=== PATIENT | female | born 1960 | race Caucasian/White ===

== ENCOUNTER 2018-03-08 08:28 | Day surgery (SDC) | payer OTHER ==
[~2018-03-08] VITALS: Ht 160 cm; Wt 43.5 kg
[~2018-03-08 08:28] MED LIST: CALCIUM 600 +1 EAC5 PO; LEVSOD88 PO
--- NOTE | 2018-03-08 08:54 | NUR ---
03/08/18 0854 Darya Greenwood V PT RESTINGIN BED, SIDE RAILS IN PLACE, CALL LIGHT WITHIN REACH, VSS.. PT TEACHING COMPLETED. PT DENIES PAIN, DISCOMFORT AND QUESTIONS AT THI TIME.
== END 2018-03-08 10:30 | disposition home or self-care (01) ==
LOC: ORSCSDS 08:28
PROVIDERS: Surgery
PROC: 0DBL8ZX Excision of Transverse Colon, Via Natural or Artificial Opening Endoscopic, Diagnostic (ICD-10-PCS; principal; 2018-03-08 10:00)
DX: Z12.11 Encounter for screening for malignant neoplasm of colon (principal); D12.3 Benign neoplasm of transverse colon; E03.9 Hypothyroidism, unspecified; K64.4 Residual hemorrhoidal skin tags; Z79.899 Other long term (current) drug therapy
CPT/HCPCS: 88305; J7120

== ENCOUNTER 2018-04-04 10:11 | Day surgery (SDC) | payer OTHER ==
[~2018-04-04] VITALS: Ht 160 cm; Wt 43.5 kg
[2018-04-04] MEDS ORDERED: MIRALAX17 GM PO (10:48)
[2018-04-04] MEDS ORDERED: BISA5EC PO (10:49)
[2018-04-04] MEDS ORDERED: METAMUCIL POWD174 GM PO (10:50)
--- NOTE | 2018-04-04 13:06 | NUR ---
04/04/18 1306 Hanna Handley DC'D HOME VIA W/C WITH INSTRUCTIONS FOR CARE AND F/U. DSG TO RECTAL AREA C/D/I NO BLEEDING NOTED. PT IOANA COFFEE AND COOKIES W/O C/O NAUSEA AND DENIED PAIN T/O RECOVERY. STATED HAS JOSELIN BOTTLE AT HOME AND DR. LINDO INSTRUCTED HER IN USE OF SITZ BATHS AND PT STATED UNDERSTANDING OF ALL INSTRUCTIONS. RX FOR PT TO FILL. ACCOMPANIED TO CAR BY AND STAFF W/SBA IOANA JOHNSON
== END 2018-04-04 13:01 | disposition home or self-care (01) ==
LOC: ORSCSDS 10:11
PROVIDERS: Surgery
PROC: 0DBQXZZ Excision of Anus, External Approach (ICD-10-PCS; principal; 2018-04-04 11:30)
DX: K64.4 Residual hemorrhoidal skin tags (principal); E03.9 Hypothyroidism, unspecified; Z79.899 Other long term (current) drug therapy
CPT/HCPCS: 88304; J1100; J1885; J2250; J2370; J2405; J3010; J7120

== ENCOUNTER → 2018-12-29 | Outpatient (CLI) | payer OTHER ==
[~2018-12-29] MED LIST changes: +BISA5EC PO; +METAMUCIL POWD174 GM PO; +MIRALAX17 GM PO
== END | disposition home or self-care (01) ==
LOC: LAB SHORT 14:28 → PLD 14:28
DX: L82.1 Other seborrheic keratosis (principal)
CPT/HCPCS: 88305

== ENCOUNTER → 2023-01-26 | Outpatient (CLI) | payer OTHER | END | disposition home or self-care (01) | LOC: LAB SHORT 15:15 → LAB 15:15 | DX: B00.9 Herpesviral infection, unspecified (principal) | CPT/HCPCS: 87071; 87075; 87076; 87077; 87185; 87186; 87205 ==

== ENCOUNTER 2024-03-23 02:20 | Day surgery (SDC) | payer OTHER ==
[~2024-03-23 02:20] MED LIST changes: +BENADRYL25 MG
[2024-03-23] MEDS ORDERED: ZOLEDRONIC ACID/MANNITOL-WATER 100 ML IV SCH (06:00)
[2024-03-23] MEDS ORDERED: CALCIUM 600 +1 EA11 PO (10:13)
[2024-03-23 10:19] VITALS: BP 144/68
[2024-03-23 10:46] VITALS: BP 122/67
--- NOTE | 2024-03-23 10:55 | NUR ---
RECLAST INFUSION COMPLETE [id number]
== END 2024-03-23 10:52 | disposition home or self-care (01) ==
LOC: ATC 02:20
DX: M81.0 Age-related osteoporosis without current pathological fracture (principal); E06.3 Autoimmune thyroiditis; E55.9 Vitamin D deficiency, unspecified; Z79.890 Hormone replacement therapy; Z90.710 Acquired absence of both cervix and uterus
CPT/HCPCS: 96365